=== PATIENT | female | born 1955 | race Two or more races ===

== ENCOUNTER 2023-02-11 06:08 | Inpatient (IN) | payer OTHER, MEDICAID ==
[~2023-02-11] VITALS: Ht 160 cm; Wt 80.9 kg
[~2023-02-11 06:08] MED LIST: HYDR1TAB97 PO; LEVO125T PO; LOSA25TA15 PO
[2023-02-11] MEDS ORDERED: TRANEXAMIC ACID 20 ML ONE (06:18)
[2023-02-11] MEDS ORDERED: VANCOMYCIN HCL 1000 MG VL ONE (06:19)
[2023-02-11] MEDS ORDERED: BUPIVACAINE 0.25% INJ 50ML VIAL ONE (06:19)
[2023-02-11] MEDS ORDERED: KETOROLAC TROMETH 30 MG/ML 1ML VIAL ONE (06:27)
[2023-02-11] MEDS ORDERED: ROCURONIUM 10MG/ML 10ML VIAL IV ONE (06:28)
[2023-02-11] MEDS ORDERED: TETRACAINE 1% INJ 2 ML VIAL IJ ONE (06:28)
[2023-02-11] MEDS ORDERED: SUCCINYLCHOLINE CHLORIDE 20 MG/ML 10ML VIAL IV ONE (06:28)
[2023-02-11] MEDS ORDERED: MORPHINE SULF PF 5 MG/10 ML VIAL ONE (06:30)
[2023-02-11] MEDS ORDERED: ceFAZolin 1GM/50ML 100 ML IV ONE (06:31)
[2023-02-11] MEDS ORDERED: MIDAZOLAM HCL 2MG/2ML 2ml VIAL (1mg/ml) ONE (06:34)
[2023-02-11] MEDS ORDERED: PROPOFOL 10 MG/ML 20 ML IV ONE (06:34)
[2023-02-11] MEDS ORDERED: DexAMETHasone SOD PHOS 10MG/1ML VIAL INJ ONE (06:34)
[2023-02-11] MEDS ORDERED: ONDANSETRON HCL 4 MG/2 ML VIAL ONE (06:34)
[2023-02-11] MEDS ORDERED: SODIUM CHLORIDE LOCK 10 ML ONE (06:34)
[2023-02-11] MEDS ORDERED: fentaNYL CITRATE 100 MCG/2 ML VL ONE (06:34)
[2023-02-11] MEDS ORDERED: CELECOXIB 100 MG CAP PO ONE (06:45)
[2023-02-11] MEDS ORDERED: ACETAMINOPHEN IV 1000 MG/100ML (10MG/ML) IV ONE (06:45)
[2023-02-11] MEDS ORDERED: MORPHINE SULFATE INJ 2 MG/ml SYRG IV PRN ×2 (06:45→09:30)
[2023-02-11] MEDS ORDERED: HYDROmorphone HCL 2 MG/ML VL/or syr IV PRN ×3 (06:45→09:30)
[2023-02-11] MEDS ORDERED: PREGABALIN CAPSULE 75 MG CAP PO ONE (06:45)
[2023-02-11] MEDS ORDERED: METOCLOPRAMIDE HCL 5MG/ml INJ 2ml VIAL IV PRN (06:45)
[2023-02-11] MEDS ORDERED: CELECOXIB 100 MG CAP ONE (07:20)
[2023-02-11] MEDS ORDERED: PREGABALIN CAPSULE 75 MG CAP ONE (07:21)
[2023-02-11] MEDS ORDERED: ACETAMINOPHEN IV 100 ML IV ONE (07:21)
[2023-02-11] MEDS ORDERED: DexAMETHasone SOD PHOS 4 MG/1ML SDV INJ ONE (07:33)
[2023-02-11] MEDS ORDERED: diphenhdrAMINE HCL 50 MG/1 ML VL IV PRN (08:30)
[2023-02-11] MEDS ORDERED: NALOXONE HCL 0.4 MG/ML VIAL IV PRN (08:30)
[2023-02-11 09:22] VITALS: PULSE 77; RESP 15; O2SAT 96
[2023-02-11] MEDS: LACTATED RINGER'S 1,000 ML IV SCH ×2 (09:30→12:13)
[2023-02-11] MEDS ORDERED: ceFAZolin 1GM/50ML 50 ML IV SCH (09:30)
[2023-02-11] MEDS ORDERED: NITROGLYCERIN 0.4 MG SL TAB SL PRN (09:30)
[2023-02-11] MEDS ORDERED: ONDANSETRON HCL 4 MG/2 ML VIAL IV PRN (09:30)
[2023-02-11] MEDS: LEVOTHYROXINE SODIUM 50 MCG TAB PO SCH (10:00)
[2023-02-11] MEDS: DOCUSATE SOD 100 MG CAP PO SCH ×2 (10:00→21:11)
[2023-02-11] MEDS: LOSARTAN POTASSIUM 25 MG TAB PO SCH (10:00)
[2023-02-11] MEDS: SODIUM CHLOR 0.9% PF (SALINE LOCK) 10ML VIAL/SYR IV SCH ×2 (14:00→21:10)
[2023-02-11] MEDS: ceFAZolin 1GM/50ML 50 ML IV SCH ×2 (14:01→19:37)
[2023-02-11 16:18] VITALS: BP 119/68; PULSE 56; RESP 18; TEMP 97.6; O2SAT 94
[2023-02-11 17:19] VITALS: BP 119/68; PULSE 56; RESP 18; TEMP 97.6; O2SAT 94
[2023-02-11 18:29] LABS: Basophils # (auto) 0 10 ^3/uL (0-0.2); Basophils % (auto) 0.2 % (0.0-2.0); Eosinophils # (auto) 0 10 ^3/uL (0-0.8); Hematocrit 37.9 % (36.0-46.0); Hemoglobin 12.4 g/dL (12.2-16.2); Lymphocytes # (auto) 0.6 10 ^3/uL (0.4-5.4); Lymphocytes % (auto) 4.5 % (10.0-50.0); Mean Corpuscular Hemoglobin 28.9 pg (28.0-32.0); Mean Corpuscular Hgb Conc. 32.8 g/dL (32.0-36.0); Mean Corpuscular Volume 88.2 fL (80.0-100.0); Monocytes # (auto) 0.3 10 ^3/uL (0-1.3); Monocytes % (auto) 2.6 % (0.0-12.0); Neutrophils # (auto) 11.9 10 ^3/uL (1.6-8.6); Neutrophils % (auto) 92.7 % (37.0-80.0); Nucleated Red Blood Cells % 0.1 %; Red Blood Cells 4.29 10^6/uL (4.0-5.20); Red Cell Distribution Width 14.2 % (11.8-14.3); White Blood Cell 12.9 10^3/uL (4.4-10.8)
[2023-02-11 20:20] VITALS: BP 125/74; PULSE 64; RESP 16; O2SAT 93
[2023-02-11 22:00] VITALS: BP 98/58; PULSE 74; RESP 16; TEMP 97.4; O2SAT 94
[2023-02-12] MEDS: ceFAZolin 1GM/50ML 50 ML IV SCH (01:06)
[2023-02-12] MEDS: HYDROcodone-ACET 5/325MG TAB PO PRN ×5 (01:43→22:20)
[2023-02-12 05:00] VITALS: BP 102/63; PULSE 68; RESP 16; TEMP 97.7; O2SAT 98
[2023-02-12] MEDS: LEVOTHYROXINE SODIUM 50 MCG TAB PO SCH (06:20)
[2023-02-12] MEDS: SODIUM CHLOR 0.9% PF (SALINE LOCK) 10ML VIAL/SYR IV SCH ×3 (06:22→21:21)
[2023-02-12 06:54] LABS: Basophils # (auto) 0 10 ^3/uL (0-0.2); Basophils % (auto) 0.1 % (0.0-2.0); Eosinophils # (auto) 0 10 ^3/uL (0-0.8); Hematocrit 33.9 % (36.0-46.0); Hemoglobin 11.5 g/dL (12.2-16.2); Lymphocytes # (auto) 0.6 10 ^3/uL (0.4-5.4); Lymphocytes % (auto) 5.5 % (10.0-50.0); Mean Corpuscular Hemoglobin 29.5 pg (28.0-32.0); Mean Corpuscular Hgb Conc. 33.8 g/dL (32.0-36.0); Mean Corpuscular Volume 87.1 fL (80.0-100.0); Monocytes # (auto) 0.9 10 ^3/uL (0-1.3); Monocytes % (auto) 9.2 % (0.0-12.0); Neutrophils # (auto) 8.8 10 ^3/uL (1.6-8.6); Neutrophils % (auto) 85.2 % (37.0-80.0); Red Blood Cells 3.89 10^6/uL (4.0-5.20); Red Cell Distribution Width 14.1 % (11.8-14.3); White Blood Cell 10.3 10^3/uL (4.4-10.8)
[2023-02-12 07:07] LABS: BUN/Creatinine Ratio 29.2 (10.0-20.0); Calcium 8.2 mg/dL (8.5-10.1); Potassium 3.7 mmol/L (3.5-5.1)
[2023-02-12 08:00] VITALS: BP 104/58; PULSE 82; RESP 20; TEMP 97.5; O2SAT 95
[2023-02-12 09:00] VITALS: BP 104/58; PULSE 82; RESP 20; TEMP 97.5; O2SAT 95
[2023-02-12] MEDS: DOCUSATE SOD 100 MG CAP PO SCH ×2 (09:52→21:20)
[2023-02-12] MEDS: ENOXAPARIN SOD 40 MG/0.4 ML SYRINGE SC SCH ×2 (09:53→10:00)
[2023-02-12] MEDS: LOSARTAN POTASSIUM 25 MG TAB PO SCH (09:53)
[2023-02-12 13:00] VITALS: BP 104/58; PULSE 75; RESP 18; TEMP 97.8; O2SAT 95
[2023-02-12] MEDS: LACTATED RINGER'S 1,000 ML IV SCH (15:30)
[2023-02-12 17:00] VITALS: BP 121/66; PULSE 80; RESP 20; TEMP 98.1; O2SAT 94
[2023-02-12 22:00] VITALS: BP 154/77; PULSE 79; RESP 21; TEMP 98.3; O2SAT 96
[2023-02-13] VITALS (7 sets, daily range): BP systolic 142–163; BP diastolic 78–87; PULSE 70–84; RESP 18–20; TEMP 97.9–98.9; O2SAT 91–96
[2023-02-13] MEDS: HYDROcodone-ACET 5/325MG TAB PO PRN ×3 (02:33→12:50)
[2023-02-13 06:28] LABS: Hematocrit 32.3 % (36.0-46.0)
[2023-02-13] MEDS: SODIUM CHLOR 0.9% PF (SALINE LOCK) 10ML VIAL/SYR IV SCH ×2 (06:32→14:28)
[2023-02-13] MEDS: LEVOTHYROXINE SODIUM 50 MCG TAB PO SCH (06:32)
[2023-02-13] MEDS: ENOXAPARIN SOD 40 MG/0.4 ML SYRINGE SC SCH (08:58)
[2023-02-13] MEDS: LOSARTAN POTASSIUM 25 MG TAB PO SCH (08:59)
[2023-02-13] MEDS: DOCUSATE SOD 100 MG CAP PO SCH (08:59)
[2023-02-13] MEDS: HYDROmorphone HCL 2 MG/ML VL/or syr IV PRN ×2 (09:02→15:25)
[2023-02-13] MEDS ORDERED: hydrALAZINE HCL 20 MG/ML VL IV PRN (14:00)
== END 2023-02-13 17:44 | disposition home health service (06) | DRG 470 ==
LOC: SUR 06:08 → OVERFLOW 09:27 → WEST WING 15:57
PROVIDERS: ADMIT Orthopaedic Surgery Adult Reconstructive Orthopaedic Surgery; ATTEND Orthopaedic Surgery
PROC: 8E0YXBZ Computer Assisted Procedure of Lower Extremity (ICD-10-PCS; 2023-02-11)
PROC: 0SRC0J9 Replacement of Right Knee Joint with Synthetic Substitute, Cemented, Open Approach (ICD-10-PCS; principal; 2023-02-11 07:29)
DX: M17.11 Unilateral primary osteoarthritis, right knee (principal); M21.161 Varus deformity, not elsewhere classified, right knee
CPT/HCPCS: 36415; 73562; 80048; 82565; 85014; 85018; 85025; 86850; 86900; 86901; 97110; 97116; 97163; 97530; G0378; J0131; J0330; J0690; J1100; J1885; J2250; J2405; J2704; J3490

== ENCOUNTER 2024-05-18 06:10 | Inpatient (IN) | payer OTHER, MEDICAID ==
[~2024-05-18] VITALS: Ht 160 cm; Wt 75.8 kg
[~2024-05-18 06:10] MED LIST changes: +ACYC400T16 PO; +GABA-1308 PO; +HYDR-4795 PO; -HYDR1TAB97 PO; +LEVO-849 PO; -LEVO125T PO; +LOSA-533 PO; -LOSA25TA15 PO
[2024-05-18] MEDS: BUPIVACAINE 0.25% INJ 50ML VIAL ONE ×2 (06:47→10:21)
[2024-05-18] MEDS ORDERED: PROPOFOL 10 MG/ML 20 ML IV ONE ×2 (06:55→08:12)
[2024-05-18] MEDS ORDERED: DexAMETHasone SOD PHOS 10MG/1ML VIAL INJ ONE (06:55)
[2024-05-18] MEDS ORDERED: GLYCOPYRROLATE 0.2 MG/ML 1ML VIAL ONE (06:55)
[2024-05-18] MEDS ORDERED: LIDOCAINE 1% INJ PF 5ML AMP ONE (06:55)
[2024-05-18] MEDS ORDERED: KETOROLAC TROMETH 30 MG/ML 1ML VIAL ONE ×2 (06:55→06:58)
[2024-05-18] MEDS ORDERED: ONDANSETRON HCL 4 MG/2 ML VIAL ONE (06:55)
[2024-05-18] MEDS ORDERED: KETAMINE 50mg/ML 1ml syringe ONE (06:55)
[2024-05-18] MEDS ORDERED: MORPHINE SULF PF 5 MG/10 ML VIAL ONE (06:58)
[2024-05-18] MEDS: ACETAMINOPHEN IV 1000 MG/100ML (10MG/ML) IV ONE (07:05)
[2024-05-18] MEDS: CELECOXIB 100 MG CAP PO ONE (07:05)
[2024-05-18] MEDS: PREGABALIN CAPSULE 75 MG CAP PO ONE (07:05)
[2024-05-18] MEDS: TRANEXAMIC ACID 20 ML ONE (07:22)
[2024-05-18] MEDS ORDERED: MORPHINE SULFATE INJ 2 MG/ml SYRG IV PRN (07:45)
[2024-05-18] MEDS ORDERED: ceFAZolin 1GM/50ML 50 ML IV SCH (07:45)
[2024-05-18] MEDS ORDERED: HYDROcodone-ACET 5/325MG TAB PO PRN (07:45)
[2024-05-18] MEDS ORDERED: ONDANSETRON HCL 4 MG/2 ML VIAL IV PRN ×2 (07:45→09:00)
[2024-05-18] MEDS ORDERED: NITROGLYCERIN 0.4 MG SL TAB SL PRN (07:45)
[2024-05-18] MEDS ORDERED: PHENYLEPHRINE HCL 10 MG/ML VL ONE (07:49)
[2024-05-18] MEDS ORDERED: SODIUM CHLORIDE LOCK 10 ML ONE (07:49)
[2024-05-18] MEDS: VANCOMYCIN HCL 1000 MG VL ONE (08:31)
[2024-05-18 08:46] VITALS: O2SAT 97
[2024-05-18] MEDS ORDERED: hydrALAZINE HCL 20 MG/ML VL IV PRN (09:00)
[2024-05-18] MEDS ORDERED: ePHEDrine SULFATE 50 MG/ML AMP IV PRN (09:00)
[2024-05-18] MEDS ORDERED: HYDROmorphone HCL 2 MG/ML VL/or syr IV PRN (09:00)
[2024-05-18] MEDS ORDERED: FLUMAZENIL 0.1 MG/ML INJ 10ML MDV IV PRN (09:00)
[2024-05-18] MEDS ORDERED: oxyCODONE HCL 5MG TAB PO PRN (09:00)
[2024-05-18] MEDS ORDERED: NALOXONE HCL 0.4 MG/ML VIAL IV PRN (09:00)
[2024-05-18] MEDS ORDERED: fentaNYL CITRATE 100 MCG/2 ML VL IV PRN (09:00)
[2024-05-18 09:01] VITALS: O2SAT 96
[2024-05-18] MEDS ORDERED: CEFEPIME 1GM/ 50ML 50 ML IV SCH (10:00)
[2024-05-18] MEDS: oxyCODONE ER 10 MG TAB PO SCH (10:00)
[2024-05-18] MEDS: LOSARTAN POTASSIUM 25 MG TAB PO SCH (10:00)
[2024-05-18] MEDS: EPINEPHrine HCL 1 MG/1 ML AMP ONE (10:20)
[2024-05-18] MEDS: DexAMETHasone SOD PHOS 4 MG/1ML SDV INJ ONE (10:21)
[2024-05-18] MEDS: ceFAZolin 2 GM/D5W100ml 100 ML IV ONE (10:21)
[2024-05-18] MEDS: CEFEPIME 1GM/ 50ML 50 ML IV ONE (10:21)
[2024-05-18] MEDS: BUPIVACAINE HCL 50 ML ONE (10:21)
[2024-05-18] MEDS: LACTATED RINGER'S 1,000 ML IV SCH (10:38)
[2024-05-18] MEDS: PANTOPRAZOLE 40 MG/10 ML VIAL INJ IV SCH (10:48)
[2024-05-18] MEDS: DOCUSATE SOD 100 MG CAP PO SCH (10:57)
[2024-05-18] MEDS: LEVOTHYROXINE SODIUM 100 MCG TAB PO SCH (10:58)
[2024-05-18 11:50] VITALS: BP 123/62; PULSE 64; RESP 15; TEMP 97.7; O2SAT 97
[2024-05-18 13:00] VITALS: BP 113/63; PULSE 67; RESP 18; TEMP 96.3; O2SAT 94
[2024-05-18] MEDS: ceFAZolin 1GM/50ML 50 ML IV SCH (13:19)
[2024-05-18] MEDS: GABAPENTIN 100 MG CAP PO SCH (15:53)
[2024-05-18] MEDS: KETOROLAC TROMETH 30 MG/ML 1ML VIAL IV SCH (16:02)
[2024-05-18] MEDS: SODIUM CHLOR 0.9% PF (SALINE LOCK) 10ML VIAL/SYR IV SCH (16:03)
[2024-05-18 17:00] VITALS: BP 150/84; PULSE 96; RESP 18; TEMP 96.6; O2SAT 94
[2024-05-18] MEDS: HYDROmorphone HCL 2 MG/ML VL/or syr IV PRN (17:08)
[2024-05-18 22:32] VITALS: BP 118/70; PULSE 93; RESP 18; TEMP 97.7; O2SAT 95
[2024-05-18] MEDS: HYDROcodone-ACET 10/325MG TAB PO PRN (22:40)
[2024-05-19 02:18] VITALS: BP 131/76; PULSE 88; RESP 18; TEMP 97.9; O2SAT 92
[2024-05-19 05:00] VITALS: BP 129/81; PULSE 91; RESP 18; TEMP 98.6; O2SAT 94
[2024-05-19] MEDS: ceFAZolin 1GM/50ML 50 ML IV ONE (06:04)
[2024-05-19 08:00] VITALS: PULSE 82; RESP 20; O2SAT 97
[2024-05-19] MEDS: ENOXAPARIN SOD 40 MG/0.4 ML SYRINGE SC SCH (10:00)
[2024-05-19] MEDS: CEFEPIME 1GM/ 50ML 50 ML IV SCH (15:26)
[2024-05-19 17:00] VITALS: BP 156/82; PULSE 83; RESP 20; TEMP 98.6; O2SAT 94
[2024-05-19 20:07] VITALS: O2SAT 97
[2024-05-19 20:49] VITALS: BP 156/81; PULSE 89; RESP 19; TEMP 98.2; O2SAT 95
[2024-05-19] MEDS: SENNA 8.6 MG TAB PO SCH (20:59)
[2024-05-20 01:00] VITALS: BP 144/71; PULSE 77; RESP 16; TEMP 98.6; O2SAT 92
[2024-05-20 06:38] LABS: Anion Gap 6 (5-15); Carbon Dioxide 28 mmol/L (20-31); Chloride 104 mmol/L (98-107); Potassium 3.5 mmol/L (3.5-5.1); Sodium 138 mmol/L (136-145)
[2024-05-20 06:40] LABS: Calcium 9.3 mg/dL (8.7-10.4)
[2024-05-20 06:44] LABS: BUN/Creatinine Ratio 18.5 (10.0-20.0); Blood Urea Nitrogen 12 mg/dL (9-23); Glucose 134 mg/dL (74-106)
[2024-05-20 07:01] LABS: INR 1.02 (0.9-1.15); Partial Thromboplastin Time 28.1 SEC (24.5-34.5); Prothrombin Time 10.8 sec (9.3-11.8)
[2024-05-20 07:12] LABS: Basophils # (auto) 0 10 ^3/uL (0-0.2); Basophils % (auto) 0.5 % (0.0-2.0); Eosinophils # (auto) 0.2 10 ^3/uL (0-0.8); Eosinophils % (auto) 2.6 % (0.0-7.0); Hematocrit 33.6 % (36.0-46.0); Hemoglobin 11.8 g/dL (12.2-16.2); Lymphocytes # (auto) 1.1 10 ^3/uL (0.4-5.4); Lymphocytes % (auto) 12.6 % (10.0-50.0); Mean Corpuscular Hemoglobin 30.3 pg (28.0-32.0); Mean Corpuscular Hgb Conc. 35.1 g/dL (32.0-36.0); Mean Corpuscular Volume 86.5 fL (80.0-100.0); Monocytes % (auto) 10.9 % (0.0-12.0); Neutrophils # (auto) 6.6 10 ^3/uL (1.6-8.6); Neutrophils % (auto) 73.4 % (37.0-80.0); Nucleated Red Blood Cells % 0.1 %; Platelet Count (auto) 202 10^3/uL (140-450); Red Blood Cells 3.88 10^6/uL (4.0-5.20); Red Cell Distribution Width 13.7 % (11.8-14.3)
[2024-05-20 08:00] VITALS: O2SAT 97
[2024-05-20 09:00] VITALS: BP 139/97; PULSE 82; RESP 16; TEMP 98; O2SAT 93
[2024-05-21 12:29] LABS: Hepatitis B Surface Antigen Negative (Negative)
[2024-05-21 12:51] LABS: Hepatitis C Antibody Negative (Negative)
== END 2024-05-20 17:15 | disposition home health service (06) | DRG 470 ==
LOC: SUR 06:10 → OVERFLOW 07:34 → WEST WING 12:04
PROVIDERS: ADMIT Orthopaedic Surgery Adult Reconstructive Orthopaedic Surgery; ATTEND Orthopaedic Surgery Adult Reconstructive Orthopaedic Surgery
PROC: 0SRD0J9 Replacement of Left Knee Joint with Synthetic Substitute, Cemented, Open Approach (ICD-10-PCS; principal; 2024-05-18 07:19)
DX: M17.12 Unilateral primary osteoarthritis, left knee (principal)
CPT/HCPCS: 36415; 73562; 80048; 85025; 85610; 85730; 86803; 86850; 86900; 86901; 87340; 97110; 97116; 97163; 97530; G0378; J0131; J0171; J1100; J1885; J2405; J2470; J2704; J3490